=== PATIENT | female | born 1990 | race Caucasian/White ===

== ENCOUNTER 2020-02-12 20:33 | Emergency (ER) | payer MEDICAID ==
[~2020-02-12] VITALS: Ht 157.5 cm; Wt 71.0 kg
[2020-02-12] MEDS ORDERED: ONDANSETRON ODT 4 MG PO ONE (21:00)
[2020-02-12] MEDS ORDERED: ONDANSETRON ODT 4 MG ONE (21:02)
--- NOTE | 2020-02-12 21:07 | NUR ---
MEDICATION ADMINISTERED PER MAR, PATIENT ABLE TO HOLD DOWN 3OZ OF WATER PRIOR TO MEDICATION ADMINISTRATION. PATIENT'S SIGNIFICANT OTHER EXPRESSED CONCERNS REGARDING THE INABILITY TO HOLD DOWN LIQUIDS.
[2020-02-12 21:20] LABS: BASOPHILS # (AUTO) 0.07 x10^3/uL (0-0.1); BASOPHILS % (AUTO) 1 % (0-1); EOSINOPHILS # (AUTO) 0.11 x10^3/uL (0-0.4); EOSINOPHILS % (AUTO) 1 % (1-7); LYMPHOCYTES # (AUTO) 3.95 x10^3/uL (1-3.4); LYMPHOCYTES % (AUTO) 28 % (22-44); MD NO; MEAN CORPUSCULAR HEMOGLOBIN 30.4 pg (27.0-34.8); MEAN CORPUSCULAR HGB CONC 33.3 g/dL (32.4-35.8); MEAN CORPUSCULAR VOLUME 91.1 fL (80-100); MEAN PLATELET VOLUME 9.1 fL (7.4-10.4); MONOCYTES # (AUTO) 0.67 x10^3/uL (0.2-0.8); MONOCYTES % (AUTO) 5 % (2-9); NEUTROPHILS # (AUTO) 9.39 x10^3/uL (1.8-6.8); NEUTROPHILS % (AUTO) 66 % (42-75); PLATELET COUNT 298 x10^3/uL (130-400); RED BLOOD COUNT 5.05 x10^6/uL (3.82-5.3); RED CELL DISTRIBUTION WIDTH 12.9 % (9.6-15.2)
[2020-02-12 21:27] LABS: ALBUMIN 3.9 g/dL (3.4-5.0); ANION GAP 4 mmol/L (5-15); CALCIUM 8.8 mg/dL (8.5-10.1); CHLORIDE 109 mmol/L (98-107)
[2020-02-12 21:32] LABS: ALANINE AMINOTRANSFERASE 27 U/L (12-78); ALKALINE PHOSPHATASE 103 U/L (45-117); BILIRUBIN,TOTAL 0.8 mg/dL (0.2-1.0); CREATININE 0.79 mg/dL (0.55-1.02); TOTAL PROTEIN 7.8 g/dL (6.4-8.2)
--- NOTE | 2020-02-12 22:13 | NUR ---
PATIENT IN RESTROOM ATTEMPTING TO COLLECT URINE SPECIMEN.
[2020-02-12 23:00] LABS: MICROSCOPIC NOT IND
--- NOTE | 2020-02-12 23:23 | NUR ---
PATIENT TAKEN TO CT VIA [facility]
--- NOTE | 2020-02-12 23:31 | NUR ---
PATIENT RETURNED FROM CT. UPDATED ON PLAN OF CARE.
[2020-02-13 00:26] VITALS: BP 115/72
== END 2020-02-13 00:28 | disposition home or self-care (01) ==
LOC: ED 21:29
DX: R11.2 Nausea with vomiting, unspecified (principal); R10.30 Lower abdominal pain, unspecified
CPT/HCPCS: 36415; 74176; 80053; 81003; 83690; 84703; 85025; 99284; Q0162